=== PATIENT | female | born 1970 | race African-American/Black ===

== ENCOUNTER 2017-04-24 15:49 | Emergency (ER) | payer BC ==
[~2017-04-24] VITALS: Ht 152.4 cm; Wt 58.5 kg
[2017-04-24 16:00] VITALS: Ht 152.4 cm; Wt 58.5 kg
[2017-04-24] MEDS ORDERED: morphine 4 MG/ML VIAL IV STA (16:54)
[2017-04-24] MEDS ORDERED: ONDANSETRON 4 MG INJ IV STA (17:12)
[2017-04-24 17:18] LABS: ADD UMIC NO; UR ASCORBIC ACID NEGATIVE (NEGATIVE); UR BILIRUBIN (Dip) NEGATIVE (NEGATIVE); UR BLOOD (Dip) NEGATIVE (NEGATIVE); UR CLARITY CLEAR (CLEAR); UR COLOR STRAW (YELLOW); UR GLUCOSE (Dip) NEGATIVE (NEGATIVE); UR KETONES (Dip) NEGATIVE (NEGATIVE); UR LEUKOCYTE ESTERASE (Dip) NEGATIVE Leu/ul (NEGATIVE); UR NITRITE (Dip) NEGATIVE (NEGATIVE); UR SPECIFIC GRAVITY (Dip) 1.005 (1.003-1.030); UR TOTAL PROTEIN (Dip) NEGATIVE (NEGATIVE); UR UROBILINOGEN (Dip) NEGATIVE (NEGATIVE)
[2017-04-24 17:20] LABS: BASOPHIL # 0.1 10^3/ul (0.0-0.1); BASOPHILS % 0.5 % (0.0-2.0); EOSINOPHILS % 0.1 % (0.0-7.0); HEMATOCRIT 43.8 % (37.0-47.0); HEMOGLOBIN 15.5 g/dl (12.0-16.0); LYMPHOCYTES # 1.9 10^3/ul (0.8-2.9); LYMPHOCYTES % 18.9 % (15.0-51.0); MEAN CORPUSCULAR HEMOGLOBIN 29.3 pg (29.0-33.0); MEAN CORPUSCULAR HGB CONC 35.4 g/dl (32.0-37.0); MEAN CORPUSCULAR VOLUME 82.8 fl (82.0-101.0); MEAN PLATELET VOLUME 11.9 fl (7.4-10.4); MONOCYTE # 0.5 10^3/ul (0.3-0.9); MONOCYTES % 4.9 % (0.0-11.0); NEUTROPHIL # 7.7 10^3/ul (1.6-7.5); NEUTROPHILS % 75.4 % (39.0-77.0); PLATELET COUNT 172 10^3/UL (140-415); RED BLOOD COUNT 5.29 10^6/ul (4.20-5.40); RED CELL DISTRIBUTION WIDTH 13.7 % (11.5-14.5); WHITE BLOOD COUNT 10.2 10^3/ul (4.8-10.8)
[2017-04-24 17:45] LABS: ALBUMIN 4.8 g/dl (3.3-4.9); ALBUMIN/GLOBULIN RATIO 1.23; BILIRUBIN,INDIRECT 0.6 mg/dl (0-1.1); BILIRUBIN,TOTAL 0.6 mg/dl (0.2-1.3); CALCIUM 9.9 mg/dl (8.4-10.2); CREATININE 0.88 mg/dl (0.44-1.00); POTASSIUM 3.8 mmol/L (3.5-5.1); TOTAL PROTEIN 8.7 g/dl (6.1-8.1)
--- NOTE | 2017-04-24 18:14 | RADRPT ---
PROCEDURE: XR Abdomen. CLINICAL INDICATION: Abdomen pain. TECHNIQUE: AP supine abdomen x-ray. COMPARISON: None. FINDINGS: The bowel gas pattern is normal. There is no evidence of obstruction. There are no abnormal calcifications overlying the urinary tracts. The osseus structures are unremarkable. IMPRESSION: 1. Unremarkable abdomen radiograph. RPTAT: QQ .Josesito Roland MD, MD Date Time Electronically viewed and signed by .Josesito Roland MD, MD on 04/24/2017 18:14 .R/
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
[2017-04-24] MEDS ORDERED: DOCU-144 PO (18:31)
[2017-04-24] MEDS ORDERED: POLY17PO6 PO (18:31)
[2017-04-24] MEDS ORDERED: TRAM50TA2 PO (18:32)
[2017-04-24] MEDS ORDERED: ACET500C5 PO (18:32)
[2017-04-24 21:19] VITALS: BP 119/62; PULSE 82; RESP 16
== END 2017-04-24 21:21 | disposition home or self-care (01) ==
LOC: FTE 15:49
DX: R10.84 Generalized abdominal pain (principal)
CPT/HCPCS: 74000; 80053; 81003; 83690; 85025; 96374; 96375; 99284; J2270; J2405

== ENCOUNTER 2018-02-24 13:20 | Emergency (ER) | END 2018-02-24 14:45 | disposition home or self-care (01) ==